=== PATIENT | male | born 1930 | race Caucasian/White ===

== ENCOUNTER 2016-10-16 10:45 | Emergency (ER) | payer OTHER ==
[~2016-10-16] VITALS: Ht 180.3 cm; Wt 73.5 kg
[~2016-10-16 10:45] MED LIST: ALLOPURINOL300 MG PO; AMBIEN CR12.5 MG PO; ASCORBIC ACID500 M3 PO; B COMPLETE1 EACH PO; CARAFATE1 GM PO; COREG12.5 M1 PO; COUMADIN2.5 MG PO; COUMADIN5 MG PO; FLOMAX0.4 MG PO; FLUTICASONE PRO16 GM BOTH NARES; FOLIC ACID1 MG PO; LASIX20 MG PO; LEVOFLOXACIN750 MG PO; LEXAPRO5 MG PO; LISINOPRIL5 MG PO; OMEPRAZOLE40 M1 PO; PRILOSEC40 MG PO; SINGULAIR10 MG PO; TESSALON200 MG PO; TRAMADOL HCL50 MG PO; TRICOR145 MG PO; VITAMIN D5000 UNI1 PO; ZOFRAN ODT8 MG PO
[2016-10-16 11:24] LABS: EOSINOPHIL (%) 0.3 % (0-5); HEMATOCRIT 26.3 % (38.0-50.0); IMMATURE GRANULOCYTE (%) 0.7 % (0.0-0.7); INSTRUMENT ABS NEUTROPHIL CT 1.8 K/uL; LYMPHOCYTE COUNT 0.8 K/uL (1.0-2.8); MCH 33.3 PG (29.0-34.0); MCHC 33.1 G/DL (30.0-36.0); MEAN PLAT.VOLUME 12.7 uM^3 (9.0-12.4); MONOCYTE (%) 9.8 % (3-12); MONOCYTE COUNT 0.3 K/uL (0-0.8); NEUTROPHIL (%) 60.8 % (45-76); NEUTROPHIL COUNT 1.8 K/uL (1.8-6.4); PLATELET COUNT 82 K/uL (156-360); RBC DIS.WIDTH-CV 17.3 % (11.8-14.6); RBC DIS.WIDTH-SD 64.2 % (39-53); RED BLOOD COUNT 2.61 M/uL (4.00-5.50)
[2016-10-16 11:25] LABS: MCV 100.8 FL (86-99)
[2016-10-16 11:32] LABS: PTT 44.6 SEC (25-37)
[2016-10-16 11:34] LABS: CHLORIDE 100 mEq/L (99-109); POTASSIUM 4.1 mEq/L (3.7-5.4); SODIUM 135 mEq/L (136-147)
[2016-10-16 11:36] LABS: GLUCOSE 97 mg/dL (70-99)
[2016-10-16 11:37] LABS: ANION GAP 10 MEQ/L (2-14); PROTHROMBIN TIME 71.6 SEC (10.2-12.9)
[2016-10-16 11:42] LABS: GFR ESTIMATE (CALCULATED) > 59 mL/min/; UREA NITROGEN (BUN) 19 mg/dL (9-23)
[2016-10-16 11:46] LABS: TROP-I INTERPRETATION NEGATIVE; TROPONIN-I 0.02 ng/mL (0.0-0.30)
[2016-10-16 11:47] LABS: ADD MIUA? NO; BILIRUBIN NEGATIVE; BLOOD NEGATIVE; COLOR YELLOW ((YELLOW)); GLUCOSE (STRIP) NEGATIVE; KETONES NEGATIVE; LEUKOCYTES NEGATIVE; NITRITE NEGATIVE; PROTEIN (STRIP) 30; SPECIFIC GRAVITY 1.013 (1.000-1.030); UCUL ADDED? NO
[2016-10-16 11:49] LABS: MAGNESIUM 1.4 mg/dL (1.3-2.7)
[2016-10-16 11:52] LABS: TOTAL BILIRUBIN 0.9 mg/dL (0.0-1.0)
[2016-10-16 11:53] LABS: ALKALINE PHOSPHATASE 135 IU/L (3-129)
[2016-10-16 11:56] LABS: DIRECT BILIRUBIN 0.5 mg/dL (0.0-0.3)
[2016-10-16 11:57] LABS: LIPASE 432 U/L (1.0-51.0)
[2016-10-16 13:51] VITALS: BP 117/88
[2016-10-16] MEDS ORDERED: ZOFRAN ODT4 MG PO (14:00)
[2016-10-16] MEDS ORDERED: PERIACTIN4 MG PO (14:00)
== END 2016-10-16 14:28 | disposition home or self-care (01) ==
LOC: EME → EDBD 10:45 → EME 14:28
PROVIDERS: Emergency Medicine
DX: R62.7 Adult failure to thrive (principal); R53.1 Weakness; R53.83 Other fatigue; C85.90 Non-Hodgkin lymphoma, unspecified, unspecified site; E78.5 Hyperlipidemia, unspecified; I10 Essential (primary) hypertension; K21.9 Gastro-esophageal reflux disease without esophagitis; Z79.01 Long term (current) use of anticoagulants; Z95.2 Presence of prosthetic heart valve; Z87.891 Personal history of nicotine dependence
CPT/HCPCS: 71010; 80048; 80076; 81003; 83605; 83690; 83735; 83880; 84484; 85025; 85610; 85730; 93005; 99281; 99284; J7030